=== PATIENT | male | born 1990 | race American Indian/Alaskan Native ===

== ENCOUNTER 2019-03-14 12:34 | Emergency (ER) | payer SELFPAY ==
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
[2019-03-14] MEDS ORDERED: NACL 0.9% IR ONE (13:24)
[2019-03-14 13:25] VITALS: BP 121/76
[2019-03-14] MEDS ORDERED: BOOSTRIX IM ONE (13:25)
[2019-03-14] MEDS ORDERED: THERMAZENE 50 GRAM TP ONE (14:00)
== END 2019-03-14 13:45 | disposition home or self-care (01) ==
LOC: ED 12:34
DX: T25.131A Burn of first degree of right toe(s) (nail), initial encounter (principal); F17.200 Nicotine dependence, unspecified, uncomplicated; J45.909 Unspecified asthma, uncomplicated; X08.8XXA Exposure to other specified smoke, fire and flames, initial encounter; Y93.89 Activity, other specified; Y92.89 Other specified places as the place of occurrence of the external cause; Y99.8 Other external cause status
CPT/HCPCS: 90471; 90715